=== PATIENT | female | born 1930 | race African-American/Black ===

== ENCOUNTER 2018-06-04 21:39 | Inpatient (IN) | payer MEDICARE, OTHER ==
[~2018-06-04] VITALS: Ht 165.1 cm; Wt 58.2 kg
[2018-06-04] MEDS ORDERED: ENALAPRIL 2.5MG/2ML VIAL 2ML IV ONE (23:00)
[2018-06-04] MEDS ORDERED: ASPIRIN 81MG TABLET PO ONE (23:00)
[2018-06-04 23:13] LABS: BASOPHILS % 0.8 % (0.0-2.0); EOSINOPHILS % 1.3 % (0.0-5.0); HEMATOCRIT. 38.7 % (36.0-48.0); HEMOGLOBIN. 13.1 g/dL (12.0-16.0); LYMPHOCYTES % 36.7 % (20.0-50.0); MEAN CORPUSCULAR HEMOGLOBIN 27.9 pg (28.0-32.0); MEAN CORPUSCULAR VOLUME 82.6 fL (81.0-99.0); MEAN PLATELET VOLUME 7.6 fl (7.4-10.4); MONOCYTES % 5.2 % (2.0-8.0); PLATELET 297 x1000/uL (130-400); RED BLOOD CELL COUNT 4.68 mill/uL (4.2-5.4); RED CELL DISTRIBUTION WIDTH 13.6 % (11.6-14.6)
[2018-06-04 23:17] LABS: CHLORIDE 104 mEq/L (98-107)
[2018-06-05] VITALS (7 sets, daily range): BP systolic 113–167; BP diastolic 56–82
[2018-06-05] MEDS ORDERED: CLONIDINE 0.1MG TABLET PO ONE (01:30)
[2018-06-05] MEDS ORDERED: IPRATROPIUM/ALBUTEROL 0.5-3(2.5)MG/3ML NEB INH PRN (11:15)
[2018-06-05] MEDS ORDERED: ACETAMINOPHEN 650MG SUPP PR PRN (11:15)
[2018-06-05] MEDS ORDERED: HYDROCODONE/ACETAMINOPHEN 5/325MG TABLET PO PRN (11:15)
[2018-06-05] MEDS ORDERED: LORAZEPAM 0.5MG TABLET PO PRN (11:15)
[2018-06-05] MEDS ORDERED: NA PHOS,M-B/NA PHOS,DI-BA ENEMA 118ML PR PRN (11:15)
[2018-06-05] MEDS ORDERED: ONDANSETRON HCL 4MG/2ML INJ IV PRN (11:15)
[2018-06-05] MEDS ORDERED: MAGNESIUM/ALUMINUM HYDROXIDE/SIMETHICONE 30ML UDC PO PRN (11:15)
[2018-06-05] MEDS ORDERED: CLONIDINE 0.1MG TABLET PO PRN (11:15)
[2018-06-05] MEDS ORDERED: DOCUSATE SODIUM 100MG CAPSULE PO PRN (11:15)
[2018-06-05] MEDS ORDERED: DIPHENHYDRAMINE 50MG/ML VIAL IV PRN (11:15)
[2018-06-05] MEDS ORDERED: ACETAMINOPHEN 325MG TABLET PO PRN (11:15)
[2018-06-05] MEDS ORDERED: GUAIFENESIN 200MG/10ML SUGAR FREE UDC PO PRN (11:15)
[2018-06-05] MEDS ORDERED: OLME40TA18 PO (11:42)
[2018-06-05] MEDS ORDERED: GLIM2TAB2 PO (11:42)
[2018-06-05] MEDS ORDERED: HYDR-459 MT (11:42)
[2018-06-05] MEDS ORDERED: ASPI-1158 PO (11:42)
[2018-06-05] MEDS: ENOXAPARIN 40MG/0.4ML SYR SUBCUT SCH (12:14)
[2018-06-05] MEDS: AMLODIPINE 5MG TABLET PO SCH (12:14)
[2018-06-05 12:27] LABS: PROTHROMBIN TIME 9.9 sec (9.6-11.0)
[2018-06-05] MEDS ORDERED: HYDRALAZINE HCL 25MG TABLET PO SCH (12:30)
[2018-06-05] MEDS ORDERED: LOSARTAN POTASSIUM 25 MG TABLET PO SCH (12:30)
[2018-06-05 12:40] LABS: CREATINE KINASE 93 IU/L (26-192)
[2018-06-05 12:41] LABS: CREATINE KINASE MB FRACTION 1.8 ng/mL (0.5-3.6)
[2018-06-05] MEDS: HYDROXYZINE 25MG TABLET PO SCH (17:00)
[2018-06-05] MEDS ORDERED: HYDROXYZINE HCL MT SCH (17:00)
[2018-06-05] MEDS ORDERED: DEXTROSE 50% WATER 50ML SYRINGE IV PRN (17:45)
[2018-06-05 18:56] LABS: CLARITY URINE CLEAR (CLEAR); COLOR URINE YELLOW (YELLOW); KETONES URINE NEGATIVE (NEGATIVE); LEUKOCYTE ESTERASE URINE NEGATIVE (NEGATIVE); NITRITE URINE NEGATIVE (NEGATIVE); OCCULT BLOOD URINE NEGATIVE (NEGATIVE); PROTEIN URINE NEGATIVE (NEGATIVE); SPECIFIC GRAVITY URINE 1.014 (1.005-1.030); UROBILINOGEN URINE 0.2 E.U./dL (0.2-1.0)
[2018-06-05 19:09] LABS: *AMPHETAMINES SCREEN URINE NEGATIVE (NEGATIVE); *BARBITURATES SCREEN URINE NEGATIVE (NEGATIVE); *BENZODIAZEPINES SCREEN URINE NEGATIVE (NEGATIVE); *COCAINE SCREEN URINE NEGATIVE (NEGATIVE)
[2018-06-05 19:12] LABS: CANNABINOID URINE SCREEN NEGATIVE (NEGATIVE); METHADONE URINE SCREEN NEGATIVE (NEGATIVE); OPIATES URINE SCREEN NEGATIVE (NEGATIVE); PHENCYCLIDINE URINE SCREEN NEGATIVE (NEGATIVE)
[2018-06-05 20:34] LABS: CREATINE KINASE 88 IU/L (26-192)
[2018-06-05 20:35] LABS: CREATINE KINASE MB FRACTION 1.6 ng/mL (0.5-3.6)
[2018-06-05] MEDS: INSULIN LISPRO 100 UNITS/ML SUBCUT SCH (21:00)
[2018-06-05] MEDS: BLOOD SUGAR DIAGNOSTIC STRIP TEST SCH (21:06)
[2018-06-05] MEDS: LOSARTAN POTASSIUM 25 MG TABLET PO SCH (21:07)
[2018-06-06] VITALS (10 sets, daily range): BP systolic 103–145; BP diastolic 50–67
[2018-06-06 06:18] LABS: BASOPHILS % 0.8 % (0.0-2.0); EOSINOPHILS % 1.8 % (0.0-5.0); HEMATOCRIT. 35.1 % (36.0-48.0); HEMOGLOBIN. 11.9 g/dL (12.0-16.0); LYMPHOCYTES % 30.6 % (20.0-50.0); MEAN CORPUSCULAR VOLUME 82.3 fL (81.0-99.0); MEAN PLATELET VOLUME 7.4 fl (7.4-10.4); MONOCYTES % 6.6 % (2.0-8.0); NEUTROPHILS % 60.2 % (40.0-76.0); PLATELET 256 x1000/uL (130-400); RED BLOOD CELL COUNT 4.27 mill/uL (4.2-5.4); RED CELL DISTRIBUTION WIDTH 13.4 % (11.6-14.6)
[2018-06-06 06:47] LABS: CHLORIDE 110 mEq/L (98-107)
[2018-06-06 06:56] LABS: LDL CHOLESTEROL 118 mg/dL (5-100); T4 FREE 1.04 ng/dL (0.76-1.46)
[2018-06-06 06:58] LABS: HDL CHOLESTEROL 50 mg/dL (40-59)
[2018-06-06] MEDS: INSULIN LISPRO 100 UNITS/ML SUBCUT SCH ×3 (07:20→16:24)
[2018-06-06] MEDS: BLOOD SUGAR DIAGNOSTIC STRIP TEST SCH ×3 (07:22→16:24)
[2018-06-06] MEDS: HYDROXYZINE 25MG TABLET PO SCH ×2 (08:22→16:24)
[2018-06-06] MEDS: AMLODIPINE 5MG TABLET PO SCH (08:24)
[2018-06-06] MEDS: LOSARTAN POTASSIUM 25 MG TABLET PO SCH (08:24)
[2018-06-06] MEDS ORDERED: GLIMEPIRIDE 2MG TABLET PO SCH (09:00)
[2018-06-06] MEDS ORDERED: ASPIRIN 81MG EC TABLET PO SCH (09:00)
[2018-06-06] MEDS: ENOXAPARIN 40MG/0.4ML SYR SUBCUT SCH (11:30)
[2018-06-06] MEDS ORDERED: ATORVASTATIN CALCIUM 20MG TABLET PO SCH (21:00)
== END 2018-06-06 17:41 | disposition home health service (06) | DRG 305 ==
LOC: ER 21:39 → 3WST 06-05 02:36 → EDBEDREQTM 06-05 02:39 → EDBEDREQ 06-05 02:39 → EDBEDREQDT 06-05 02:39 → ENRESERV 06-05 10:30
PROVIDERS: ADMIT Internal Medicine; ATTEND Internal Medicine
DX: I16.0 Hypertensive urgency (principal); I31.3 Pericardial effusion (noninflammatory); R07.89 Other chest pain; I10 Essential (primary) hypertension; E78.5 Hyperlipidemia, unspecified; E11.9 Type 2 diabetes mellitus without complications; Z79.84 Long term (current) use of oral hypoglycemic drugs; Z79.899 Other long term (current) drug therapy
CPT/HCPCS: 36415; 71045; 80061; 80305; 82550; 82553; 82962; 83036; 83880; 84439; 84443; 84484; 93005; 93306; 96374; 97116; 97162; 99285; J1650; J3490